=== PATIENT | female | born 1955 | race Caucasian/White ===

== ENCOUNTER 2018-10-24 18:19 | Emergency (ER) | payer OTHER ==
[~2018-10-24] VITALS: Ht 167.6 cm; Wt 90.7 kg
[~2018-10-24 18:19] MED LIST: ALENDRONATE SOD70 M1 PO; ALENDRONATE SOD70 MG PO; ANTIVERT/2525 M1 PO; ASPIRIN81 M1 PO; BYSTOLIC5 MG PO; CITRACAL LIQUI500 MG PO; Ciprofloxacin500 MG PO; DIFLUCAN100 MG PO; ENABLEX15 MG PO; FENOFIBRATE160 MG PO; FLAGYL250 MG PO; FLEXERIL10 MG PO; FLOMAX0.4 MG PO; HYDROCODONE BIT1 T11 PO; KEFLEX500 M1 PO; LEVOTHYROXINE0.1 MG PO; LIDOCAINE 2% PO; LIPO-FLAVONOID PO; LIPOFLAVONOID1 GEL TP; LISINOPRIL10 MG PO; MACROBID100 M1 PO; METAMUCIL1 PDR PO; MIRALAX17 GM/DOSE PO; MOBIC15 MG PO; NAPROSYN250 MG PO; NORCO 325 MG-7.1 TAB PO; OXYBUTYNIN5 MG PO; OXYCODONE AND A1 TA4 PO; PEPCID20 MG PO; PERI-COLACE 501 TAB PO; POLYETHYLENE GL1 PO6 PO; POTASSIUM CITR10 MEQ PO; PREMARIN V0.625 MG/G VG; SYNTHROID,LEV100 MCG PO; TERCONAZOLE0.4% V; TYLENOL650 M1 PO; ULTRAM50 MG PO; VALIUM5 MG PO; VICODIN ES 7501 TA1 PO; VITAMIN D5000 I3 PO; ZETIA10 MG PO; ZOFRAN ODT4 MG SL; [UNRECOGNIZED DRUG - OTHER] PO
[2018-10-24 18:52] LABS: BASO # 0.1 10*3/uL (0.0-0.1); BASO % 0.7 % (0.0-1.0); EOS # 0.1 10*3/uL (0.0-0.4); EOS % 0.6 % (1.0-4.0); HEMATOCRIT 46.3 % (37.0-47.0); HEMOGLOBIN 15.8 g/dl (12.0-16.0); LYMPH # 3.4 10*3/uL (1.3-4.4); MEAN CELL VOLUME 95.9 fl (81.0-99.0); MEAN CORPUSCULAR HGB 32.7 pg (27.0-31.0); MEAN CORPUSCULAR HGB CONC 34.1 g/dl (33.0-37.0); MEAN PLATELET VOLUME 10.7 fl (9.6-12.3); MONO # 0.6 10*3/uL (0.1-1.0); MONO % 6.2 % (3.0-9.0); NEUT # 5.9 10*3/uL (2.3-7.9); NEUT % 58.2 % (47.0-73.0); PLATELET COUNT AUTOMATED 223 10*3/uL (130-400); RED BLOOD COUNT 4.83 10*6/uL (4.10-5.10); RED CELL DISTRI WIDTH 13.1 % (0-14.5)
[2018-10-24 19:07] LABS: ALBUMIN 4.2 gm/dl (3.1-4.5); ALKALINE PHOSPHATASE 122 U/L (45-117); BUN 12 mg/dl (7-24); CHLORIDE 102 mmol/L (98-107); CREATININE 0.98 mg/dL (0.55-1.02); POTASSIUM 3.6 mmol/L (3.5-5.1); SGOT/AST 66 IU/L (3-35); SGPT/ALT 74 U/L (12-78); SODIUM 137 mmol/L (136-145)
[2018-10-24 19:25] VITALS: BP 121/77
[2018-10-24] MEDS ORDERED: AUGMENTIN 875875 MG PO (19:34)
== END 2018-10-24 19:50 | disposition home or self-care (01) ==
LOC: ED 18:19
PROVIDERS: Nurse Practitioner Family
DX: R04.0 Epistaxis (principal); Z88.2 Allergy status to sulfonamides; Z88.1 Allergy status to other antibiotic agents; Z88.8 Allergy status to other drugs, medicaments and biological substances; Z88.6 Allergy status to analgesic agent; Z79.2 Long term (current) use of antibiotics; Z79.899 Other long term (current) drug therapy

== ENCOUNTER 2022-04-02 19:41 | Emergency (ER) | payer OTHER, MEDICAID ==
[~2022-04-02] VITALS: Ht 170.1 cm; Wt 90.7 kg
[~2022-04-02 19:41] MED LIST changes: +AUGMENTIN 875875 MG PO
[2022-04-02] MEDS ORDERED: NAPROSYN500 MG PO (23:50)
[2022-04-02] MEDS ORDERED: VIBRAMYCIN HYC100 MG PO (23:50)
== END 2022-04-03 00:03 | disposition home or self-care (01) ==
LOC: ED 19:41
DX: S30.860A Insect bite (nonvenomous) of lower back and pelvis, initial encounter (principal); Z88.2 Allergy status to sulfonamides; Z88.1 Allergy status to other antibiotic agents; Z88.8 Allergy status to other drugs, medicaments and biological substances; Z79.899 Other long term (current) drug therapy; Z98.51 Tubal ligation status; Z90.89 Acquired absence of other organs; Z98.890 Other specified postprocedural states; W57.XXXA Bitten or stung by nonvenomous insect and other nonvenomous arthropods, initial encounter; Y93.89 Activity, other specified; Y92.89 Other specified places as the place of occurrence of the external cause; Y99.8 Other external cause status

== ENCOUNTER 2022-10-07 23:06 | Emergency (ER) | payer OTHER, MEDICAID ==
[~2022-10-07] VITALS: Ht 170.1 cm; Wt 90.7 kg
[~2022-10-07 23:06] MED LIST changes: +NAPROSYN500 MG PO; +VIBRAMYCIN HYC100 MG PO
[2022-10-08 00:45] VITALS: BP 115/69
== END 2022-10-08 01:11 | disposition home or self-care (01) ==
LOC: ED 23:06
DX: R10.12 Left upper quadrant pain (principal); Z98.890 Other specified postprocedural states; Z88.2 Allergy status to sulfonamides; Z88.1 Allergy status to other antibiotic agents; Z88.8 Allergy status to other drugs, medicaments and biological substances; Z88.6 Allergy status to analgesic agent; Z79.899 Other long term (current) drug therapy; Z79.2 Long term (current) use of antibiotics; Z98.51 Tubal ligation status

== ENCOUNTER → 2023-08-06 | Outpatient (CLI) | payer OTHER, MEDICAID ==
[~2023-08-06] MED LIST changes: +PRILOSEC20 M1 PO; +TOPROL XL25 MG PO; +XARELTO20 M1 PO
== END | disposition home or self-care (01) ==
LOC: CARD 00:34
PROVIDERS: ATTEND Internal Medicine Cardiovascular Disease
DX: I07.1 Rheumatic tricuspid insufficiency (principal); I48.91 Unspecified atrial fibrillation; I15.1 Hypertension secondary to other renal disorders

== ENCOUNTER 2025-10-18 20:10 | Emergency (ER) | payer OTHER, MEDICAID ==
[~2025-10-18] VITALS: Ht 170.1 cm; Wt 90.7 kg
[2025-10-18 20:34] VITALS: BP 142/96
[2025-10-18] MEDS ORDERED: PREMPRO 0.45-11 EACH PO (20:35)
[2025-10-18] MEDS ORDERED: LEVOTHYROXINE200 MC3 PO (20:36)
[2025-10-18] MEDS ORDERED: COZAAR50 M1 PO (20:37)
[2025-10-18 21:59] LABS: BASO # 0.1 10*3/uL (0.0-0.1); BASO % 0.9 % (0.0-1.0); EOS # 0.2 10*3/uL (0.0-0.4); EOS % 2.6 % (1.0-4.0); MEAN CELL VOLUME 97.3 fl (81.0-99.0); MEAN CORPUSCULAR HGB 32.5 pg (27.0-31.0); MEAN PLATELET VOLUME 10.5 fl (9.6-12.3); MONO # 0.5 10*3/uL (0.1-1.0); MONO % 8.0 % (3.0-9.0); NEUT # 3.0 10*3/uL (2.3-7.9); NEUT % 51.6 % (47.0-73.0); NUCLEATED RED BLOOD CELL 0.0 % (0.0-0.0); NUCLEATED RED BLOOD CELL 0.0 10*3/uL (0.0-0.0); PLATELET COUNT AUTOMATED 186 10*3/uL (130-400); RED CELL DISTRI WIDTH 12.9 % (0-14.5)
[2025-10-18 22:23] LABS: BUN 10 mg/dl (9-23)
[2025-10-18 22:52] LABS: BACTERIA TRACE; BILIRUBIN Negative (Negative); BLOOD Negative (Negative); CLARITY Clear (Clear); COLOR Yellow (Yellow); EPITHELIAL CELLS 41-50; KETONE Negative (Negative); LEUKO ESTERASE Negative (Negative); NITRITE Negative (Negative); PH 6.5 (4.5-8.0); SPECIFIC GRAVITY 1.015 (1.001-1.030); UROBILINOGEN 0.2 E.U./dl (0.0-1.0)
== END 2025-10-18 23:06 | disposition home or self-care (01) ==
LOC: ED 20:10
PROVIDERS: Nurse Practitioner Family
DX: R20.0 Anesthesia of skin (principal); R53.1 Weakness; I10 Essential (primary) hypertension; F41.9 Anxiety disorder, unspecified; F32.A Depression, unspecified; E03.9 Hypothyroidism, unspecified; Z87.891 Personal history of nicotine dependence; Z88.1 Allergy status to other antibiotic agents; Z88.2 Allergy status to sulfonamides; Z88.5 Allergy status to narcotic agent; Z88.8 Allergy status to other drugs, medicaments and biological substances